=== PATIENT | male | born 1995 | race Caucasian/White ===

== ENCOUNTER 2025-03-05 20:53 | Emergency (ER) | payer BC, SELFPAY ==
[2025-03-05 20:55] VITALS: BP 131/78; PULSE 77; RESP 18; TEMP 36.4; O2SAT 100; BMI 24.2
--- NOTE | 2025-03-05 21:10 | RAD_ITS ---
PROCEDURE: HAND MIN 3 VIEWS 03/05/2025 REASON FOR EXAM: PAIN, LIMITED ROM TECHNIQUE: Procedure Code: ZO Modality: DX Procedure: HAND MIN 3 VIEWS Laterality: Right COMPARISON: None. FINDINGS: No acute fracture or dislocation. Alignment is anatomic. Preserved joint spaces. No aggressive osseous lesion. No marked soft tissue swelling or radiopaque foreign body. RAD/Hand Min 3 Views IMPRESSION: No acute fracture or dislocation. Reading Location: [id number]
--- NOTE | 2025-03-05 22:33 | EX.ED.UPPERE ---
HPI History of Present Illness HPI Narrative: Patient presents with right hand injury that occurred 2 days ago. Patient states he hit his knuckle on a piece of metal. Patient describes the pain as sharp and aching. Patient states it is worse with any movement. Patient states it is better with rest. Patient denies any paresthesias or weakness. Patient denies any other injuries. Patient states he is ambidextrous. Chief Complaint: Upper Extremity Injury Informant: patient Occured/Mechanism Mechanism/Context: Yes blunt trauma Onset/Context/Timing Onset: Days (2 days ago) Context: Sudden Onset Timing: Continuous Quality of Pain: Sharp and Aching Location: Right hand Worsened by: Movement Relieved by: Rest Associated Symptoms Associated Symptoms: Negative for Parasthesia, Weakness or Loss of Funtion PFSH PFSH no medical history Allergy/AdvReac Type Severity Reaction Status Date / Time No Known Allergies Allergy Verified 03/05/25 20:54 no surgical history Social History Smoking Status: Current every day smoker tobacco type: cigarettes and e-cigarettes ROS ROS ED Constitutional Constitutional ED: Denies chills or fever(s) Eyes Eyes: Denies blurry vision or change in vision ENT ENT ED: Denies rhinorrhea or sore throat Cardiovascular Cardiovascular: Denies chest pain or palpitations Respiratory/Chest Respiratory/Chest: Denies cough or dyspnea Gastrointestinal Gastrointestinal: Denies nausea or vomiting Genitourinary Genitourinary ED: Denies dysuria or hematuria Musculoskeletal Musculoskeletal: Denies back pain or neck pain Integumentary Denies abscess or rash Neurologic Neurologic: Denies headache(s) or weakness Allergic/Immunologic Allergic/Immunologic ED: Denies mouth swelling or urticaria EXAM Physical Exam Const Vital Signs: 03/05/25 20:55 Temperature 97.5 F L Temperature Source Temporal Pulse Rate 77 Respiratory Rate 18 Blood Pressure 131/78 H Blood Pressure Mean 95 Pulse Ox 100 Oxygen Delivery Method Room Air Positive well nourished and well developed General Appearance ED: well developed and NAD HEENT Reports moist mucous membranes normocephalic and atraumatic Neck full ROM and supple Extremity Extremity Narrative: There is tenderness over the right second metacarpal and second MP joint. There is some mild edema. There is no bony crepitus or step-off. There is no deformity noted. Range of motion was limited in all motions of the right 2nd and 3rd fingers secondary to pain. Sensation was intact to light touch in the radial, median, and ulnar areas. Strength is 5/5 in the radial, median, and ulnar areas. Radial pulses are equal bilaterally. Capillary refill is less than 2 seconds in all digits. Neuro oriented x3, CN's II-XII intact bilaterally, moves all extremities, no focal motor deficits and no sensory deficits noted Sensorium / Orientation: alert Motor Exam: strength 5/5 throughout Psych mental status grossly normal MDM MDM MDM Narrative Medical decision making narrative: Differential diagnose includes fracture, sprain, and contusion. X-rays of the right hand will be obtained to assess for fracture. No Radiography Diagnostic Testing: Clinical Impression(s) from Imaging Studies Hand X-Ray 03/05/25 21:10 IMPRESSION: No acute fracture or dislocation. Reading Location: [facility] X-rays of the right hand were obtained. There are 3 views. On my independent interpretation, there is no acute fracture or dislocation noted. Radiologist also interpreted the x-rays and agrees. Treatment and Re-Evaluation Narrative: Patient was advised of his findings. Patient was instructed to ice and elevate the right hand. Patient was instructed to take Tylenol or ibuprofen as needed for pain. Patient was instructed to follow-up with his primary care physician in 5 to 7 days. Patient understood and was agreeable with the plan. All questions were answered. Discharge Plan Triage Chief Complaint: Upper Extremity Injury ED Provider: Rodney Chen Dx/Rx/DC Orders Clinical Impression: Contusion of right hand, initial encounter, Tobacco use Instructions: ED Hand Contusion Print Language: [place] Citizen Disposition Disposition: Home, Self Care
[2025-03-05 22:46] VITALS: BP 128/75; PULSE 76; RESP 16; TEMP 36.4; O2SAT 100
== END 2025-03-05 22:48 | disposition home or self-care (01) ==
PROVIDERS: Emergency Provider Emergency Medicine; Visit Provider Emergency Medicine
DX: S60.221A Contusion of right hand, initial encounter (principal); W22.09XA Striking against other stationary object, initial encounter; F17.210 Nicotine dependence, cigarettes, uncomplicated; F17.290 Nicotine dependence, other tobacco product, uncomplicated
CPT/HCPCS: 73130; 99282